=== PATIENT | female | born 1970 | race Caucasian/White ===

== ENCOUNTER → 2016-12-08 | Outpatient (CLI) | payer BC | LOC: OD 16:01 | PROVIDERS: ATTEND Family Medicine | DX: M25.50 Pain in unspecified joint (principal) | CPT/HCPCS: 36415; 84443; 85652; 86038; 86140; 86430 ==

== ENCOUNTER → 2017-03-10 | Outpatient (CLI) | payer BC, OTHER ==
--- NOTE | 2017-03-10 11:47 | RADIOLOGY REPORT (SQ) ---
EXAM DESCRIPTION: CHEST PA/LATERAL COMPLETED DATE/TIME: 03/10/2017 11:38 am REASON FOR STUDY: PRE OP COMPARISON: 04/11/2009 EXAM PARAMETERS: NUMBER OF VIEWS: two views TECHNIQUE: Digital Frontal and Lateral radiographic views of the chest acquired. RADIATION DOSE: NA LIMITATIONS: none FINDINGS: LUNGS AND PLEURA: No opacities, masses or pneumothorax. No pleural effusion. MEDIASTINUM AND HILAR STRUCTURES: No masses or contour abnormalities. HEART AND VASCULAR STRUCTURES: Heart normal size. No evidence for failure. BONES: No acute findings. HARDWARE: None in the chest. OTHER: No other significant finding. IMPRESSION: NO SIGNIFICANT RADIOGRAPHIC FINDING IN THE CHEST. TECHNICAL DOCUMENTATION: JOB ID: [id number] [employer]- All Rights Reserved
[2017-03-10 12:09] LABS: APPEARANCE,URINE CLEAR; BILIRUBIN,URINE NEGATIVE (NEGATIVE); GLUCOSE, URINE NEGATIVE (NEGATIVE); KETONES,URINE NEGATIVE (NEGATIVE); LEUKOCYTE ESTERASE,URINE NEGATIVE (NEGATIVE); NITRITE,URINE NEGATIVE (NEGATIVE); PROTEIN,URINE NEGATIVE (NEGATIVE); URINE SPECIFIC GRAVITY 1.003; UROBILINOGEN,URINE NEGATIVE mg/dL (<2.0)
[2017-03-10 12:13] LABS: ABSOLUTE EOSINOPHILS # (AUTO) 0.2 10^3/uL (0.0-0.6); ABSOLUTE MONOCYTES (AUTO) 0.7 10^3/uL (0.1-1.4); ABSOLUTE NEUT (AUTO) 6.6 10^3/uL (1.7-8.2); BASOPHILS % (AUTO) 0.5 % (0-2); EOSINOPHILS % (AUTO) 1.9 % (0-6); HEMATOCRIT 44.3 % (36.0-47.0); HGB HCT DIFFERENCE 0.7; LYMPHOCYTES % (AUTO) 28.5 % (13-45); MEAN CORPUSCULAR VOLUME 88 fl (80-97); MONOCYTES % (AUTO) 6.5 % (3-13); RED BLOOD COUNT 5.01 10^6/uL (3.72-5.28); RED CELL DISTRIBUTION WIDTH 13.5 % (11.5-14.0); SEGMENTED NEUTROPHILS % (AUTO) 62.6 % (42-78); WHITE BLOOD COUNT 10.5 10^3/uL (4.0-10.5)
[2017-03-10 12:35] LABS: ANION GAP 11 (5-19); BLOOD UREA NITROGEN 10 mg/dL (7-20); CALCIUM 10.3 mg/dL (8.4-10.2); CARBON DIOXIDE 26 mmol/L (22-30); CHLORIDE 102 mmol/L (98-107); GLUCOSE 167 mg/dL (75-110); POTASSIUM 4.6 mmol/L (3.6-5.0); SODIUM 139.4 mmol/L (137-145)
--- NOTE | 2017-03-10 22:46 | EKG REPORT ---
SEVERITY:- NORMAL ECG - SINUS RHYTHM : Confirmed by: Adrián Wills 10-Mar-2017 22:46:20
== END ==
LOC: OD 10:48
PROVIDERS: ATTEND Orthopaedic Surgery
DX: Z01.810 Encounter for preprocedural cardiovascular examination (principal); Z01.812 Encounter for preprocedural laboratory examination; Z01.818 Encounter for other preprocedural examination
CPT/HCPCS: 36415; 71020; 80048; 81001; 83036; 85025; 93005; 93010

== ENCOUNTER 2017-03-29 08:30 | Inpatient (IN) | payer BC, OTHER ==
[~2017-03-29 08:30] MED LIST: BUPIVACAINE INJ/PF LIPOSOME/PF 266 MG/20 ML SDV INJ PRN; CEFAZOLIN INJ 1 GM VIAL IV PRN; IBUPROFEN 800 MG in NORMAL SALINE 250 ML IV PRN; LACTATED RINGERS 1000 ML IV PRN; LANSOPRAZOLE 15 MG TAB.RAP.DR PO PRN; LIDOCAINE 0.5% INJ-PF (5 MG/ML) 50 ML SDV SUBCUT PRN; OXYCODONE HCL SR 10 MG TABLET PO PRN; VANCOMYCIN HCL 1,000 MG in DEXTROSE 5%-WATER 250 ML IV PRN
[2017-03-29] MEDS ORDERED: MIDAZOLAM 2 MG/2 ML INJ ONE (09:40)
[2017-03-29] MEDS ORDERED: FENTANYL CITRATE INJ/PF 100 MCG/2 ML AMPUL ONE (09:40)
[2017-03-29] MEDS ORDERED: TRANEXAMIC ACID INJ/PF 1,000 MG/10 ML SDV IV ONE ×3 (09:41→13:30)
[2017-03-29] MEDS ORDERED: PROPOFOL INJ 200 MG/20 ML VIAL IV ONE ×2 (09:41→11:11)
[2017-03-29] MEDS ORDERED: BUPIVACAINE INJ/PF LIPOSOME/PF 266 MG/20 ML SDV ONE (09:47)
[2017-03-29] MEDS ORDERED: THROMBIN (BOVINE) TOPICAL 20000 UNIT VIAL ONE (09:47)
[2017-03-29] MEDS ORDERED: THROMBIN (BOVINE) 5000 UNIT EPITAXIS KIT ONE (09:47)
[2017-03-29] MEDS ORDERED: PROMETHAZINE HCL INJ 25 MG/1 ML VIAL IV PRN (11:04)
[2017-03-29] MEDS ORDERED: FENTANYL CITRATE INJ/PF 100 MCG/2 ML AMPUL IV PRN ×3 (11:04)
[2017-03-29] MEDS ORDERED: ONDANSETRON HCL INJ/PF 4 MG/2 ML SDV IV PRN ×3 (11:04→12:30)
[2017-03-29] MEDS ORDERED: DIPHENHYDRAMINE HCL 50 MG/ML VIAL IV PRN ×2 (11:04→11:35)
[2017-03-29] MEDS ORDERED: MORPHINE SULFATE 10 MG/ML INJ IV PRN ×3 (11:04→11:35)
--- NOTE | 2017-03-29 11:25 | Operative Report ---
Operative Report DATE OF SURGERY: 03/29/17 PREOPERATIVE DIAGNOSIS: Right knee arthritis OPERATION: Right knee arthroplasty SURGEON: ANA REINOSO 1ST [employer] BAND WRAPPER: SHANI MAY ANESTHESIA: Spinal TISSUE REMOVED OR ALTERED: Bone to pathology ESTIMATED BLOOD LOSS: 100 PROCEDURE: Implants used: Femur: [place] triathlon number size 4 CR femur Tibia: 4 tibia Tibial liner: 9 mm CS insert Patella: 29 mm oval patella Procedure with the patient supine on the operating table the right the limb is prepped and draped in a sterile fashion. The limb was elevated for exsanguination and the tourniquet inflated to 280 torr. A standard midline median parapatellar approach the knee is taken. Access is gained to the femoral canal through the intercondylar notch. Intramedullary alignment instrumentation used to resect 10 mm of distal femur in 5 of valgus. Sizing guide indicated a size 4 femur. Appropriate cutting jig is then used to fashion anterior posterior and chamfer cuts. A trial reduction femurs performed and this is judged to be adequate. Attention was next turned to the tibia. Using an extra medullary alignment system 9 millimeters was resected off the lateral tibial plateau. This is sized to a size 4 tibia. A trial reduction was now performed with a for femur and a for tibia using a 9 millimeters spacer. It is full extension and central patellofemoral tracking. The articular surface the patella was next resected using an oscillating saw. All trial implants were removed. Polymethylmethacrylate is mixed and used to cement the above implants in place. On adequate curing the cement excess cement was removed the tourniquet was deflated hemostasis obtained the wound is then closed in layers using interrupted Vicryl followed by alexnadria. A sterile compressive dressing was applied and the patient returned to recovery room in satisfactory condition.
[2017-03-29] MEDS ORDERED: ESZOPICLONE PO PRN (11:34)
[2017-03-29] MEDS ORDERED: LORATADINE 10 MG TABLET PO PRN (11:34)
[2017-03-29] MEDS ORDERED: OXYCODONE HCL IR 5 MG TABLET PO PRN (11:35)
[2017-03-29] MEDS ORDERED: ONDANSETRON 4 MG TAB.RAPDIS PO PRN ×2 (11:35→12:30)
[2017-03-29] MEDS ORDERED: ACETAMINOPHEN 325 MG TABLET PO PRN (11:35)
[2017-03-29] MEDS ORDERED: MORPHINE SULFATE 10 MG/ML INJ IM PRN (11:35)
[2017-03-29] MEDS ORDERED: ZOLPIDEM TARTRATE 5 MG TABLET PO PRN ×3 (11:35→12:30)
[2017-03-29] MEDS ORDERED: MAG HYDROX/AL HYDROX/SIMETH SUSP 30 ML UDCUP PO PRN ×2 (11:35→12:30)
--- NOTE | 2017-03-29 13:30 | RADIOLOGY REPORT (SQ) ---
EXAM DESCRIPTION: KNEE RIGHT 2 VIEWS COMPLETED DATE/TIME: 03/29/2017 1:10 pm REASON FOR STUDY: POST-OP RIGHT KNEE IN PACU. M17.11 UNILATERAL PRIMARY OSTEOARTHRITIS, RIGHT KNEE COMPARISON: None. NUMBER OF VIEWS: Two view(s). TECHNIQUE: Digital radiographic images of the right knee post-procedure. LIMITATIONS: None. FINDINGS: BONES: No worrisome or unexpected findings post-procedure. DEVICE: Total knee arthroplasty. SOFT TISSUES: No worrisome findings. Expected postoperative soft tissue changes. IMPRESSION: SATISFACTORY POSTOPERATIVE RIGHT KNEE. TECHNICAL DOCUMENTATION: JOB ID: [id number] [employer]- All Rights Reserved
[2017-03-29] MEDS ORDERED: INFLUENZA ADLT QUAD (36MOS+) 2017-18 VAC 0.5 ML SYR IM PRN (15:17)
[2017-03-29] MEDS: MORPHINE SULFATE 10 MG/ML INJ IV PRN ×4 (16:27→23:33)
[2017-03-29] MEDS: SITAGLIPTIN PHOSPHATE 50 MG TABLET PO SCH (17:27)
[2017-03-29] MEDS: METFORMIN HCL 500 MG TABLET PO SCH (17:27)
[2017-03-29] MEDS: OXYCODONE HCL IR 5 MG TABLET PO PRN (17:27)
[2017-03-29] MEDS: IBUPROFEN 800 MG in NORMAL SALINE 250 ML IV SCH (17:28)
[2017-03-29] MEDS ORDERED: ACETAMINOPHEN 100 ML IV ONE (17:35)
[2017-03-29] MEDS: RIVAROXABAN 10 MG TABLET PO SCH (21:08)
[2017-03-29] MEDS: PREGABALIN 75 MG CAPSULE PO SCH (21:08)
[2017-03-29] MEDS ORDERED: OXYCODONE HCL SR 10 MG TABLET PO SCH (22:00)
[2017-03-29] MEDS ORDERED: VANCOMYCIN HCL 1,000 MG in DEXTROSE 5%-WATER 250 ML IV ONE (23:35)
[2017-03-30] MEDS: OXYCODONE HCL IR 5 MG TABLET PO PRN ×2 (00:06→23:43)
[2017-03-30] MEDS: MORPHINE SULFATE 10 MG/ML INJ IV PRN ×8 (00:36→16:31)
[2017-03-30] MEDS: IBUPROFEN 800 MG in NORMAL SALINE 250 ML IV SCH ×3 (02:05→17:14)
[2017-03-30] MEDS: LANSOPRAZOLE 30 MG TAB.RAP.DR PO SCH (05:32)
[2017-03-30 05:59] LABS: HEMATOCRIT 34.8 % (36.0-47.0); HEMOGLOBIN 12.4 g/dL (12.0-15.5); HGB HCT DIFFERENCE 2.4; MEAN CORPUSCULAR HEMOGLOBIN 30.5 pg (27.0-33.4); MEAN CORPUSCULAR HGB CONC 35.5 g/dL (32.0-36.0); MEAN CORPUSCULAR VOLUME 86 fl (80-97); RED BLOOD COUNT 4.05 10^6/uL (3.72-5.28); RED CELL DISTRIBUTION WIDTH 13.2 % (11.5-14.0); WHITE BLOOD COUNT 11.7 10^3/uL (4.0-10.5)
[2017-03-30 06:15] LABS: ANION GAP 9 (5-19); BLOOD UREA NITROGEN 6 mg/dL (7-20); CALCIUM 8.8 mg/dL (8.4-10.2); CARBON DIOXIDE 26 mmol/L (22-30); CHLORIDE 104 mmol/L (98-107); CREATININE RESULT 0.45 mg/dL (0.52-1.25); GLUCOSE 165 mg/dL (75-110); POTASSIUM 4.4 mmol/L (3.6-5.0); SODIUM 138.7 mmol/L (137-145)
--- NOTE | 2017-03-30 06:36 | PDOC PROGRESS REPORT ---
Subjective Progress Note for:: 03/30/17 Subjective:: Patient complained of pain all night unrelieved by IV narcotics Physical Exam Vital Signs: Temp Pulse Resp BP Pulse Ox 36.8 C 88 15 104/66 98 03/29/17 23:09 03/29/17 23:09 03/29/17 23:09 03/29/17 23:09 03/29/17 23:09 Intake & Output 03/28/17 03/29/17 03/30/17 06:59 06:59 06:59 Intake Total 4410 Output Total 3105 Balance 1305 General appearance: PRESENT: no acute distress Head exam: PRESENT: normocephalic Respiratory exam: PRESENT: unlabored Cardiovascular exam: PRESENT: RRR Pulses: PRESENT: +1 pedal pulses bilateral Vascular exam: PRESENT: normal capillary refill GI/Abdominal exam: PRESENT: soft Rectal exam: PRESENT: deferred Extremities exam: PRESENT: other - Right lower extremity dressing clean dry and intact Neurological exam: PRESENT: alert, awake, oriented to person, oriented to place , oriented to time, oriented to situation. ABSENT: motor sensory deficit Psychiatric exam: PRESENT: appropriate affect, normal mood. ABSENT: homicidal ideation, suicidal ideation Skin exam: PRESENT: dry, intact, warm. ABSENT: cyanosis, rash Results Laboratory Results: 03/30/17 05:42 03/30/17 05:42 03/30/17 03/30/17 05:42 05:42 WBC 11.7 H RBC 4.05 Hgb 12.4 Hct 34.8 L MCV 86 MCH 30.5 MCHC 35.5 RDW 13.2 Plt Count 261 Sodium 138.7 Potassium 4.4 Chloride 104 Carbon Dioxide 26 Anion Gap 9 BUN 6 L Creatinine 0.45 L Est GFR ( Amer) > 60 Est GFR (Non-Af Amer) > 60 Glucose 165 H Calcium 8.8 Impressions: Knee X-Ray 03/29/17 00:00 IMPRESSION: SATISFACTORY POSTOPERATIVE RIGHT KNEE. Status: Imported from PACS Assessment & Plan - Diagnosis (1) Arthritis of right knee Is this a current diagnosis for this admission?: Yes Plan: 46-year-old white female postop day 1 status post right knee arthroplasty. Appropriate analgesia remains problematic patient's OxyContin has been increased. She will continue on with physical therapy. - Time Time Spent with patient: 15-24 minutes Anticipated discharge: Home with Homehealth Within: within 24 hours
[2017-03-30] MEDS: SITAGLIPTIN PHOSPHATE 50 MG TABLET PO SCH ×2 (09:12→17:14)
[2017-03-30] MEDS: METFORMIN HCL 500 MG TABLET PO SCH ×2 (09:12→17:13)
[2017-03-30] MEDS: VALSARTAN 160 MG TABLET PO SCH (09:13)
[2017-03-30] MEDS: AMLODIPINE BESYLATE 5 MG TABLET PO SCH (09:13)
[2017-03-30] MEDS: ASCORBIC ACID 500 MG TABLET PO SCH (09:14)
[2017-03-30] MEDS: OXYCODONE HCL SR 40 MG TABLET PO SCH ×2 (09:14→21:43)
[2017-03-30] MEDS: MULTIVITAMIN TABLET PO SCH (09:15)
[2017-03-30] MEDS: PREGABALIN 75 MG CAPSULE PO SCH ×2 (09:15→21:43)
[2017-03-30] MEDS ORDERED: VALSARTAN PO SCH (10:00)
[2017-03-30] MEDS ORDERED: ASCORBATE CALCIUM PO SCH (10:00)
[2017-03-30] MEDS ORDERED: AMLODIPINE BESYLATE PO SCH (10:00)
[2017-03-30] MEDS ORDERED: [UNRECOGNIZED DRUG - OTHER] PO SCH (10:00)
[2017-03-30] MEDS ORDERED: PHENYLEPHRINE HCL INJ/PF 10 MG/1 ML SDV ONE (11:08)
[2017-03-30] MEDS: RIVAROXABAN 10 MG TABLET PO SCH (21:43)
[2017-03-31] MEDS: IBUPROFEN 800 MG in NORMAL SALINE 250 ML IV SCH ×2 (01:03→09:27)
[2017-03-31] MEDS: LANSOPRAZOLE 30 MG TAB.RAP.DR PO SCH (05:48)
[2017-03-31] MEDS: OXYCODONE HCL IR 5 MG TABLET PO PRN (05:48)
[2017-03-31 05:49] LABS: HEMATOCRIT 33.7 % (36.0-47.0); HEMOGLOBIN 11.9 g/dL (12.0-15.5); MEAN CORPUSCULAR HEMOGLOBIN 30.5 pg (27.0-33.4); MEAN CORPUSCULAR HGB CONC 35.3 g/dL (32.0-36.0); MEAN CORPUSCULAR VOLUME 87 fl (80-97); RED BLOOD COUNT 3.89 10^6/uL (3.72-5.28); RED CELL DISTRIBUTION WIDTH 13.4 % (11.5-14.0); WHITE BLOOD COUNT 13.3 10^3/uL (4.0-10.5)
--- NOTE | 2017-03-31 07:31 | PDOC DISCHARGE SUMMARY ---
General - Admit/Disc Date/PCP Admission Date/Primary Care Provider: 03/29/17 08:30 DANIEL LAU MD Discharge Date: 03/31/17 - Discharge Diagnosis (1) Arthritis of right knee Is this a current diagnosis for this admission?: Yes - Additional Information Resuscitation Status: Full Code Discharge Diet: As Tolerated, Regular Discharge Activity: Activity As Tolerated, No Driving, No tub bath, Walk Frequently Home Medications: Amlodipine Besylate/Valsartan [Amlodipine-Valsartan 5-160 mg] 1 tab PO DAILY Eszopiclone [Lunesta] 1 mg PO HSP PRN 03/15/17 Ibuprofen 800 mg PO Q8HP PRN 03/15/17 Loratadine [Claritin] 10 mg PO DAILYP PRN 03/15/17 Multivitamin [Multiple Vitamins] 1 tab PO DAILY 03/15/17 Tramadol HCl 50 mg PO Q12HP PRN 03/15/17 Sitagliptin Phos/Metformin HCl [Janumet Xr 50-500 mg Tablet] 1 tab PO BID History of Present Illness History of Present Illness: QUIANA RAHMAN is a 46 year old female who was admitted to the OR for an elective total right knee arthroplasty. Hospital Course Hospital Course: 46-year-old female who was admitted to the OR who underwent a elective total right knee arthroplasty. She was turned to the surgical floor in acceptable condition and seen by physical therapy for weightbearing as tolerated intended to by nursing staff for pain control. She made progress with physical therapy ambulating up to 180 feet independently and she will be discharged to her home today on postop day 2 with home health nursing services, home physical therapy and a wheeled walker. Physical Exam Vital Signs: Temp Pulse Resp BP Pulse Ox 36.7 C 103 H 14 105/50 L 99 03/30/17 23:48 03/30/17 23:48 03/30/17 23:48 03/30/17 23:48 03/30/17 23:48 Intake & Output 03/30/17 03/31/17 04/01/17 06:59 06:59 06:59 Intake Total 4810 2930 Output Total 3785 1200 Balance 1025 1730 General appearance: PRESENT: no acute distress, well-developed, well-nourished Head exam: PRESENT: atraumatic, normocephalic Pulses: PRESENT: normal dorsalis pedis pul, +2 pedal pulses bilateral Vascular exam: PRESENT: normal capillary refill Additional comments: Right lower extremity is in postoperative compression dressing this morning. This dressing was removed and OpSite wound dressing is clean dry and intact. She exhibits appropriate strength and range of motion for this stage in recovery process she has brisk capillary refill and her sensory and motor functions are intact. Her leg lengths are equal and distal neurovascular exam is intact. Musculoskeletal exam: PRESENT: ambulatory Additional comments: Patient has made good progress with physical therapy here in the hospital ambulating up to 180 feet independently. She will continue to make progress with home physical therapy to improve strength and range of motion of the right lower extremity. Neurological exam: PRESENT: alert, awake, oriented to person, oriented to place , oriented to time, oriented to situation, CN II-XII grossly intact. ABSENT: motor sensory deficit Psychiatric exam: PRESENT: appropriate affect, normal mood. ABSENT: homicidal ideation, suicidal ideation Skin exam: PRESENT: dry, intact, warm. ABSENT: cyanosis, rash Results Laboratory Results: 03/31/17 05:23 03/30/17 05:42 03/31/17 05:23 WBC 13.3 H RBC 3.89 Hgb 11.9 L Hct 33.7 L MCV 87 MCH 30.5 MCHC 35.3 RDW 13.4 Plt Count 264 Impressions: Knee X-Ray 03/29/17 00:00 IMPRESSION: SATISFACTORY POSTOPERATIVE RIGHT KNEE. Plan Discharge Plan: 46-year-old white female 2 days status post total right knee arthroplasty who will be discharged home today with home PT, home health nursing, wheeled walker. The visiting nurse service will change the postop site dressing day 7 and replaced it with a new one. Patient was advised that with her post operative pain regimen she does not need to take the oxycodone and she can simply take the written prescription for tramadol as well as her Xarelto. She was also advised to take oral Motrin as this provided optimal pain relief for the patient while in the hospital. She will follow up with [facility] for surgery with Dr. Mora 2 weeks postoperatively for staple removal and reevaluation.
[2017-03-31] MEDS ORDERED: TRAMADOL HCL 50 MG TABLET PO PRN (08:15)
[2017-03-31] MEDS: ASCORBIC ACID 500 MG TABLET PO SCH (09:25)
[2017-03-31] MEDS: METFORMIN HCL 500 MG TABLET PO SCH (09:25)
[2017-03-31] MEDS: PREGABALIN 75 MG CAPSULE PO SCH (09:26)
[2017-03-31] MEDS: SITAGLIPTIN PHOSPHATE 50 MG TABLET PO SCH (09:26)
[2017-03-31] MEDS: VALSARTAN 160 MG TABLET PO SCH (09:26)
[2017-03-31] MEDS: MULTIVITAMIN TABLET PO SCH (09:26)
[2017-03-31] MEDS: AMLODIPINE BESYLATE 5 MG TABLET PO SCH (09:27)
[2017-03-31 14:03] VITALS: BP 104/66
== END 2017-03-31 14:44 | disposition home health service (06) | DRG 470 ==
LOC: INOR 08:30 → 4S 13:14
PROVIDERS: ADMIT Orthopaedic Surgery; ATTEND Orthopaedic Surgery
PROC: 0SRC0J9 Replacement of Right Knee Joint with Synthetic Substitute, Cemented, Open Approach (ICD-10-PCS; principal; 2017-03-29 10:30)
PROC: 3E0234Z Introduction of Serum, Toxoid and Vaccine into Muscle, Percutaneous Approach (ICD-10-PCS; 2017-03-31)
DX: M17.11 Unilateral primary osteoarthritis, right knee (principal); K21.9 Gastro-esophageal reflux disease without esophagitis; E11.9 Type 2 diabetes mellitus without complications; I10 Essential (primary) hypertension; Z86.14 Personal history of Methicillin resistant Staphylococcus aureus infection; Z88.6 Allergy status to analgesic agent; Z23 Encounter for immunization
CPT/HCPCS: 01402; 36415; 80048; 81025; 82962; 85027; 88305; 88311; 90686; 94799; C9290; J0131; J0690; J1741; J2250; J2270; J2370; J2704; J3010; J3370; J3490; J7050; J7060; S0119

== ENCOUNTER → 2017-06-29 | Outpatient (CLI) | payer BC, OTHER ==
--- NOTE | 2017-06-29 11:27 | RADIOLOGY REPORT (SQ) ---
EXAM DESCRIPTION: U/S ABDOMEN LIMITED W/O DOP COMPLETED DATE/TIME: 06/29/2017 9:05 am REASON FOR STUDY: N/V (R11.2), ABD TENDERNESS RUQ (R10.811 R11.2 NAUSEA WITH VOMITING, UNSPECIFIED R10.811 RIGHT UPPER QUADRANT ABDOMINAL TENDERNESS COMPARISON: None. TECHNIQUE: Dynamic and static grayscale images acquired of the abdomen and recorded on PACS. Additio nal selected color Doppler and spectral images recorded. LIMITATIONS: None. FINDINGS: PANCREAS: No masses. Visualized pancreatic duct normal caliber. LIVER: No masses. Echotexture normal. LIVER VASCULATURE: Normal directional flow of the main portal vein and hepatic veins. GALLBLADDER: Sludge. No gallstones. No thickening of the wall or pericholecystic edema. ULTRASOUND-DETECTED WINN'S SIGN: Negative. INTRAHEPATIC DUCTS AND COMMON DUCT: CBD and intrahepatic ducts normal caliber. No filling defects. INFERIOR VENA CAVA: Normal flow. AORTA: No aneurysm. RIGHT KIDNEY: Normal size. Normal echogenicity. No solid or suspicious masses. No hydronephrosis. No calcifications. PERITONEAL AND RIGHT PLEURAL SPACE: No ascites or effusions. OTHER: No other significant findings. IMPRESSION: Gallbladder sludge. Study otherwise normal. TECHNICAL DOCUMENTATION: JOB ID: [id number] [employer]- All Rights Reserved
== END ==
LOC: RAD 08:11
PROVIDERS: ATTEND Internal Medicine Gastroenterology
DX: R11.2 Nausea with vomiting, unspecified (principal); R10.811 Right upper quadrant abdominal tenderness; K82.8 Other specified diseases of gallbladder
CPT/HCPCS: 76705

== ENCOUNTER → 2017-07-09 | Outpatient (CLI) | payer BC, OTHER ==
[2017-07-09 14:59] LABS: ABSOLUTE BASOPHILS # (AUTO) 0.1 10^3/uL (0.0-0.2); ABSOLUTE EOSINOPHILS # (AUTO) 0.3 10^3/uL (0.0-0.6); ABSOLUTE LYMPHOCYTES (AUTO) 3.3 10^3/uL (0.5-4.7); ABSOLUTE MONOCYTES (AUTO) 0.7 10^3/uL (0.1-1.4); ABSOLUTE NEUT (AUTO) 4.2 10^3/uL (1.7-8.2); BASOPHILS % (AUTO) 0.8 % (0-2); EOSINOPHILS % (AUTO) 3.3 % (0-6); HEMATOCRIT 44.2 % (36.0-47.0); HEMOGLOBIN 15.2 g/dL (12.0-15.5); LYMPHOCYTES % (AUTO) 38.6 % (13-45); MEAN CORPUSCULAR HEMOGLOBIN 28.9 pg (27.0-33.4); MEAN CORPUSCULAR HGB CONC 34.3 g/dL (32.0-36.0); MEAN CORPUSCULAR VOLUME 84 fl (80-97); MONOCYTES % (AUTO) 7.8 % (3-13); PLATELET COUNT 349 10^3/uL (150-450); RED BLOOD COUNT 5.25 10^6/uL (3.72-5.28); RED CELL DISTRIBUTION WIDTH 13.7 % (11.5-14.0); SEGMENTED NEUTROPHILS % (AUTO) 49.5 % (42-78); TOTAL CELLS COUNTED % (AUTO) 100 %; WHITE BLOOD COUNT 8.5 10^3/uL (4.0-10.5)
[2017-07-09 15:03] LABS: APPEARANCE,URINE CLEAR; BILIRUBIN,URINE NEGATIVE (NEGATIVE); COLOR,URINE YELLOW; GLUCOSE, URINE NEGATIVE (NEGATIVE); KETONES,URINE NEGATIVE (NEGATIVE); LEUKOCYTE ESTERASE,URINE NEGATIVE (NEGATIVE); NITRITE,URINE NEGATIVE (NEGATIVE); PROTEIN,URINE NEGATIVE (NEGATIVE); URINE SPECIFIC GRAVITY 1.006; UROBILINOGEN,URINE NEGATIVE mg/dL (<2.0)
[2017-07-09 15:28] LABS: ANION GAP 16 (5-19); BLOOD UREA NITROGEN 12 mg/dL (7-20); CALCIUM 10.8 mg/dL (8.4-10.2); CARBON DIOXIDE 26 mmol/L (22-30); CHLORIDE 102 mmol/L (98-107); GLUCOSE 115 mg/dL (75-110); POTASSIUM 4.5 mmol/L (3.6-5.0)
--- NOTE | 2017-07-09 15:32 | RADIOLOGY REPORT (SQ) ---
EXAM DESCRIPTION: CHEST PA/LATERAL COMPLETED DATE/TIME: 07/09/2017 2:23 pm REASON FOR STUDY: PRE OP COMPARISON: 03/10/2017 EXAM PARAMETERS: NUMBER OF VIEWS: two views TECHNIQUE: Digital Frontal and Lateral radiographic views of the chest acquired. RADIATION DOSE: NA LIMITATIONS: none FINDINGS: LUNGS AND PLEURA: No opacities, masses or pneumothorax. No pleural effusion. MEDIASTINUM AND HILAR STRUCTURES: No masses or contour abnormalities. HEART AND VASCULAR STRUCTURES: Heart normal size. No evidence for failure. BONES: No acute findings. HARDWARE: None in the chest. OTHER: No other significant finding. IMPRESSION: NO SIGNIFICANT RADIOGRAPHIC FINDING IN THE CHEST. TECHNICAL DOCUMENTATION: JOB ID: [id number] [employer]- All Rights Reserved
--- NOTE | 2017-07-09 18:15 | EKG REPORT ---
SEVERITY:- NORMAL ECG - SINUS RHYTHM : Confirmed by: Braulio Orourke MD 09-Jul-2017 18:14:44
== END ==
LOC: OD 13:24
PROVIDERS: ATTEND Orthopaedic Surgery
DX: Z01.810 Encounter for preprocedural cardiovascular examination (principal); Z01.812 Encounter for preprocedural laboratory examination; Z01.818 Encounter for other preprocedural examination; E11.9 Type 2 diabetes mellitus without complications
CPT/HCPCS: 36415; 71046; 80048; 81001; 83036; 85025; 93005; 93010

== ENCOUNTER 2017-08-02 07:41 | Inpatient (IN) | payer BC, OTHER ==
[~2017-08-02 07:41] MED LIST changes: +BUPIVACAINE INJ/PF LIPOSOME/PF 266 MG/20 ML SDV IJ PRN; -BUPIVACAINE INJ/PF LIPOSOME/PF 266 MG/20 ML SDV INJ PRN; +BUPIVACAINE INJ/PF LIPOSOME/PF 266 MG/20 ML SDV ONE; -IBUPROFEN 800 MG in NORMAL SALINE 250 ML IV PRN; +IBUPROFEN 800 MG/NS 250 ML IV PRN; +THROMBIN (BOVINE) 5000 UNIT EPITAXIS KIT ONE; +THROMBIN (BOVINE) TOPICAL 20000 UNIT VIAL ONE
[2017-08-02] MEDS ORDERED: MIDAZOLAM 2 MG/2 ML INJ ONE ×2 (08:40→08:58)
[2017-08-02] MEDS ORDERED: FENTANYL CITRATE INJ/PF 100 MCG/2 ML AMPUL ONE (08:57)
[2017-08-02] MEDS ORDERED: LIDOCAINE 2% INJ-PF (20 MG/ML) 10 ML AMPUL ONE (08:57)
[2017-08-02] MEDS ORDERED: TRANEXAMIC ACID INJ/PF 1,000 MG/10 ML SDV IV ONE ×2 (08:58→13:00)
[2017-08-02] MEDS ORDERED: HYDROMORPHONE HCL INJ/PF 2 MG/ML AMPULE ONE (08:58)
[2017-08-02] MEDS ORDERED: PROPOFOL INJ 200 MG/20 ML VIAL IV ONE (08:58)
[2017-08-02] MEDS ORDERED: KETAMINE HCL INJ 500 MG/10 ML VIAL ONE (10:22)
[2017-08-02] MEDS ORDERED: MEPERIDINE HCL/PF INJ 25 MG/1 ML DISP.SYRIN IV PRN ×2 (10:31→10:32)
[2017-08-02] MEDS ORDERED: ONDANSETRON HCL INJ/PF 4 MG/2 ML SDV IV PRN (10:31)
[2017-08-02] MEDS ORDERED: PROMETHAZINE HCL INJ 25 MG/1 ML VIAL IV PRN ×4 (10:31→10:32)
[2017-08-02] MEDS ORDERED: DIPHENHYDRAMINE HCL 50 MG/ML VIAL IV PRN ×3 (10:31→11:09)
[2017-08-02] MEDS ORDERED: FENTANYL CITRATE INJ/PF 100 MCG/2 ML AMPUL IV PRN ×6 (10:31→10:32)
--- NOTE | 2017-08-02 10:54 | Operative Report ---
Operative Report DATE OF SURGERY: 08/02/17 PREOPERATIVE DIAGNOSIS: Left knee arthritis OPERATION: Left knee arthroplasty SURGEON: ANA REINOSO 1ST [employer] OFFICER: SHANI MAY ANESTHESIA: Spinal TISSUE REMOVED OR ALTERED: Bone to pathology ESTIMATED BLOOD LOSS: 100 PROCEDURE: Implants used: Femur: [place] triathlon size 4 CR femur Tibia: 4 tibia Tibial liner: 9 mm CS spacer Patella: 29 mm oval patella Procedure with the patient supine on the operating table the left the limb is prepped and draped in a sterile fashion. The limb was elevated for exsanguination and the tourniquet inflated to 280 torr. A standard midline median parapatellar approach the knee is taken. Access is gained to the femoral canal through the intercondylar notch. Intramedullary alignment instrumentation used to resect 10 mm of distal femur in 5 of valgus. Sizing guide indicated a size 4 femur. Appropriate cutting jig is then used to fashion anterior posterior and chamfer cuts. A trial reduction femurs performed and this is judged to be adequate. Attention was next turned to the tibia. Using an extra medullary alignment system 9 millimeters was resected off the lateral tibial plateau. This is sized to a size 4 tibia. A trial reduction was now performed with a for femur and a for tibia using a 9 millimeters spacer. It is full extension and central patellofemoral tracking. The articular surface the patella was next resected using an oscillating saw. All trial implants were removed. Polymethylmethacrylate is mixed and used to cement the above implants in place. On adequate curing the cement excess cement was removed the tourniquet was deflated hemostasis obtained the wound is then closed in layers using interrupted Vicryl followed by alexandria. A sterile compressive dressing was applied and the patient returned to recovery room in satisfactory condition.
[2017-08-02] MEDS ORDERED: CYCLOBENZAPRINE HCL 10 MG TABLET PO PRN (11:08)
[2017-08-02] MEDS ORDERED: OXYCODONE HCL IR 5 MG TABLET PO PRN (11:09)
[2017-08-02] MEDS ORDERED: MAG HYDROX/AL HYDROX/SIMETH SUSP 30 ML UDCUP PO PRN (11:09)
[2017-08-02] MEDS ORDERED: ZOLPIDEM TARTRATE 5 MG TABLET PO PRN (11:09)
[2017-08-02] MEDS ORDERED: ONDANSETRON 4 MG TAB.RAPDIS PO PRN (11:09)
[2017-08-02] MEDS ORDERED: ACETAMINOPHEN 325 MG TABLET PO PRN (11:09)
--- NOTE | 2017-08-02 11:59 | RADIOLOGY REPORT (SQ) ---
EXAM DESCRIPTION: KNEE LEFT 2 VIEWS COMPLETED DATE/TIME: 08/02/2017 11:50 am REASON FOR STUDY: Post OP -Long Cassette in PACU M17.12 UNILATERAL PRIMARY OSTEOARTHRITIS, LEFT KNE E COMPARISON: None. NUMBER OF VIEWS: Left knee two views TECHNIQUE: Digital radiographic images of the left knee post-procedure. LIMITATIONS: None. FINDINGS: BONES: No worrisome or unexpected findings post-procedure. DEVICE: Left total knee replacement with patellar resurfacing SOFT TISSUES: No worrisome findings. Expected postoperative soft tissue changes. IMPRESSION: SATISFACTORY POSTOPERATIVE LEFT KNEE. TECHNICAL DOCUMENTATION: JOB ID: [id number] [employer]- All Rights Reserved
--- NOTE | 2017-08-02 12:31 | Physician Advisory Note ---
Physician Advisor ProgressNote .: Pursuant to the plan for Blake Sanchez, I have reviewed the medical record for this patient. Physician Advisor Statement: What still needs to be documented by attending to support surgical necessity: 1. What nonsurgical or conservative options have been tried and are clearly documented in the pre-op medical record (Choose ALL that apply): A. NSAIDS or Analgesics - what, how much, for how long? (or: not tolerated due to ) B. Flexibility and Muscle Strengthening exercises C. PT (or: not able to tolerate due to ) D. Assistive device use (cane, walker, brace) - what, how long? E. Therapeutic injections - what, how long? F. Weight loss attempts (as appropriate)? or G. 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 The above tx.s have not proven successful & this patient continues with ( Choose ALL that apply): A. Pain in joint at rest (pain rating scale: ___/10) B. Pain in joint with activity (pain rating scale: ___/10) C. Pain in joint with weight bearing (pain rating scale: ___/10) 3. Pain or functional disability from injury due to trauma or arthritis of the joint interferes with these ADLs (Choose ALL that apply): A. Standing B. Walking C. Bathing D. Cooking E. Squatting F. Climbing stairs G. Difficulty getting up when seated a long time 4. Radiologic findings pre-op of the knee that is for surgery now (Choose ALL that apply): A. Subchondral cysts B. Subchondral sclerosis C. Periarticular osteophytes D. Joint space narrowing/endstage joint disease E. Joint subluxation F. AVN/osteonecrosis Status: Current documented information does not support Inpatient status at this time according to [facility] criteria. Unless [facility] status criteria are different, she should be Outpatient status, changing to Inpatient if she develops complications or other issues that qualify for Inpatient status. Thanks, CK
[2017-08-02] MEDS ORDERED: DEXTROSE 40% GEL 15 GM TUBE X 2 PO PRN (13:56)
[2017-08-02] MEDS ORDERED: DEXTROSE 50%-WATER SYRINGE 25 GM/50 ML DOSE IV PRN (13:56)
[2017-08-02] MEDS ORDERED: DEXTROSE 40% GEL 15 GM TUBE PO PRN (13:56)
[2017-08-02] MEDS ORDERED: GLUCAGON,HUMAN RECOMB 1 MG INJ IM PRN (13:56)
[2017-08-02] MEDS ORDERED: DEXTROSE 50%-WATER SYRINGE 12.5 GM/25 ML DOSE IV PRN (13:56)
[2017-08-02] MEDS ORDERED: ONDANSETRON HCL INJ/PF 4 MG/2 ML SDV ONE (14:17)
[2017-08-02] MEDS: ONDANSETRON HCL INJ/PF 4 MG/2 ML SDV IV PRN ×2 (14:42→23:42)
[2017-08-02] MEDS: IBUPROFEN 800 MG in NORMAL SALINE 250 ML IV SCH ×2 (14:47→23:41)
[2017-08-02] MEDS: HYDROMORPHONE HCL INJ/PF 2 MG/ML AMPULE IV PRN ×2 (16:24→20:45)
[2017-08-02] MEDS ORDERED: ACETAMINOPHEN 100 ML IV ONE (17:00)
[2017-08-02] MEDS: INSULIN LISPRO 100 UNIT/ML 3 ML VIAL SUBCUT PRN (17:28)
[2017-08-02] MEDS: PREGABALIN 75 MG CAPSULE PO SCH (18:02)
[2017-08-02] MEDS ORDERED: VANCOMYCIN HCL 1,000 MG in DEXTROSE 5%-WATER 250 ML IV ONE (23:00)
[2017-08-02] MEDS: OXYCODONE HCL SR 10 MG TABLET PO SCH (23:41)
[2017-08-02] MEDS: SULFAMETHOXAZOLE/TRIMETHOPRIM 800-160 MG TABLET PO SCH (23:43)
[2017-08-03] MEDS: HYDROMORPHONE HCL INJ/PF 2 MG/ML AMPULE IV PRN ×3 (00:09→06:12)
[2017-08-03 05:36] LABS: HEMATOCRIT 36.1 % (36.0-47.0); HEMOGLOBIN 12.3 g/dL (12.0-15.5); MEAN CORPUSCULAR HEMOGLOBIN 28.8 pg (27.0-33.4); MEAN CORPUSCULAR HGB CONC 34.1 g/dL (32.0-36.0); MEAN CORPUSCULAR VOLUME 84 fl (80-97); PLATELET COUNT 278 10^3/uL (150-450); RED BLOOD COUNT 4.28 10^6/uL (3.72-5.28); RED CELL DISTRIBUTION WIDTH 13.3 % (11.5-14.0); WHITE BLOOD COUNT 14.4 10^3/uL (4.0-10.5)
[2017-08-03] MEDS ORDERED: LANSOPRAZOLE 30 MG TAB.RAP.DR PO SCH (06:00)
[2017-08-03] MEDS: IBUPROFEN 800 MG in NORMAL SALINE 250 ML IV SCH (06:12)
[2017-08-03] MEDS: ONDANSETRON HCL INJ/PF 4 MG/2 ML SDV IV PRN (06:13)
[2017-08-03 06:14] LABS: ANION GAP 12 (5-19); BLOOD UREA NITROGEN 10 mg/dL (7-20); CALCIUM 9.2 mg/dL (8.4-10.2); CARBON DIOXIDE 27 mmol/L (22-30); CHLORIDE 99 mmol/L (98-107); GLUCOSE 191 mg/dL (75-110); POTASSIUM 4.3 mmol/L (3.6-5.0); SODIUM 138.2 mmol/L (137-145)
--- NOTE | 2017-08-03 06:48 | PDOC DISCHARGE SUMMARY ---
General - Admit/Disc Date/PCP Admission Date/Primary Care Provider: 08/02/17 07:41 DANIEL LAU MD Discharge Date: 08/03/17 - Discharge Diagnosis (1) Arthritis of left knee Is this a current diagnosis for this admission?: Yes - Additional Information Resuscitation Status: Full Code Discharge Diet: As Tolerated, Regular Discharge Activity: Activity As Tolerated, No Driving, No tub bath, Walk Frequently Home Medications: Amlodipine Besylate/Valsartan [Exforge 5-160 mg Tablet] 1 tab PO DAILY 07/30/17 Cyclobenzaprine HCl [Flexeril 10 mg Tablet] 10 mg PO Q6HP PRN 07/30/17 Eszopiclone [Lunesta] 3 mg PO QHS 07/30/17 Fluticasone Propionate [Flonase Nasal Karthaus 50 Mcg/Karthaus 16 gm] 2 spray NASL DAILY 07/30/17 Ibuprofen [Motrin 800 mg Tablet] 800 mg PO TIDP PRN 07/30/17 Loratadine [Claritin 10 mg Tablet] 10 mg PO DAILY 07/30/17 Meloxicam [Mobic] 7.5 mg PO DAILY 07/30/17 Multivitamin [Multiple Vitamins] 1 tab PO DAILY 07/30/17 Ondansetron [Zofran Odt 4 mg Tablet] 4 mg PO TIDP PRN 07/30/17 Sitagliptin Phos/Metformin HCl [Janumet Xr 50-1,000 mg Tablet] 2 tab PO DAILY Sulfamethoxazole/Trimethoprim [Septra-Ds 800-160 mg Tablet] 1 tab PO BID Tramadol HCl [Ultram 50 mg Tablet] 50 mg PO Q6HP PRN 07/30/17 History of Present Illness History of Present Illness: QUIANA RAHMAN is a 47 year old female with progressive pain and decreased functional mobility due to left knee arthritis. She was admitted for elective total left knee arthroplasty. Hospital Course Hospital Course: 47-year-old white female with left knee arthritis admitted to the hospital to the OR for elective total left knee arthroplasty. Patient undergoes uncomplicated procedure and is taken to PACU in satisfactory condition. She was then returned to the surgical floor where she is seen by nursing staff and Dr. Mora for pain control. Physical therapy was ordered to work towards weightbearing and ambulation on left lower extremity. She was not seen by physical therapy. This is somewhat concerning as a postoperative patient from a total joint arthroplasty. Her blood sugars were controlled between 155 and 163. She will be discharged to her home today with home health nursing, home physical therapy, wheeled walker and bedside commode. Physical Exam Vital Signs: Temp Pulse Resp BP Pulse Ox 36.4 C 65 15 129/65 H 100 08/02/17 23:00 08/02/17 23:00 08/02/17 23:00 08/02/17 23:00 08/02/17 23:00 Intake & Output 08/01/17 08/02/17 08/03/17 06:59 06:59 06:59 Intake Total 3250 Output Total 2050 Balance 1200 Weight 76.2 kg General appearance: PRESENT: no acute distress, well-developed, well-nourished Head exam: PRESENT: atraumatic, normocephalic Respiratory exam: PRESENT: unlabored Pulses: PRESENT: normal dorsalis pedis pul, +2 pedal pulses bilateral Vascular exam: PRESENT: normal capillary refill Additional comments: Patient lying recumbent in hospital bed with bilateral lower extremities in full extension. Her OpSite compression dressing is clean dry and intact. This is removed and her OpSite dressing underneath is clean dry and intact. This is left in place. She has +2 pedal pulses and minimal pedal edema. Her sensory motor functions are intact and her distal neurovascular exam is intact. Musculoskeletal exam: PRESENT: ambulatory Additional comments: It was ordered for physical therapy to see patient on postop day 0 from total left knee arthroplasty to work towards weightbearing and ambulation. She was not seen by physical therapy on postop day 0. This is concerning as she was postop from a total joint arthroplasty. Per patient and patient's she was ambulatory from bed to chair at the bedside and to bedside commode as well as the restroom. She will continue to work with home physical therapy to work towards further independent ambulation and increase strength and range of motion of left lower extremity. Neurological exam: PRESENT: alert, awake, oriented to person, oriented to place , oriented to time, oriented to situation, CN II-XII grossly intact. ABSENT: motor sensory deficit Psychiatric exam: PRESENT: appropriate affect, normal mood. ABSENT: homicidal ideation, suicidal ideation Skin exam: PRESENT: dry, intact, warm. ABSENT: cyanosis, rash Results Laboratory Results: 08/03/17 05:02 08/03/17 05:02 08/03/17 08/03/17 05:02 05:02 WBC 14.4 H RBC 4.28 Hgb 12.3 Hct 36.1 MCV 84 MCH 28.8 MCHC 34.1 RDW 13.3 Plt Count 278 Sodium 138.2 Potassium 4.3 Chloride 99 Carbon Dioxide 27 Anion Gap 12 BUN 10 Creatinine 0.47 L Est GFR ( Amer) > 60 Est GFR (Non-Af Amer) > 60 Glucose 191 H Calcium 9.2 Impressions: Knee X-Ray 08/02/17 11:11 IMPRESSION: SATISFACTORY POSTOPERATIVE LEFT KNEE. Plan Discharge Plan: 47-year-old white female one day status post total left knee arthroplasty. As noted physical therapy was ordered to see patient for weightbearing and ambulation postop day 0 from total left knee arthroplasty. She was not seen by physical therapy and was unable to make progress. This is concerning as she is status post total joint arthroplasty. Per patient and patient's she was ambulatory and able to transfer from bed to chair at the bedside as well as ambulate to the bathroom. She will be discharged to her home today with home health nursing, home physical therapy, wheeled walker and bedside commode. She will continue to work with home physical therapy to improve strength range of motion of left lower extremity and work towards independent ambulation. [facility] services will change OpSite dressing when they see fit i.e. when it is saturated with damaris blood. She will follow-up with [facility] for surgery Dr. Mora and Hank REID 2 weeks postoperatively for reevaluation and staple removal. Time Spent: Less than 30 Minutes
[2017-08-03 07:44] VITALS: BP 115/65
[2017-08-03] MEDS: INSULIN LISPRO 100 UNIT/ML 3 ML VIAL SUBCUT PRN (08:48)
[2017-08-03] MEDS: OXYCODONE HCL SR 10 MG TABLET PO SCH (09:54)
[2017-08-03] MEDS: PREGABALIN 75 MG CAPSULE PO SCH (09:55)
[2017-08-03] MEDS: SULFAMETHOXAZOLE/TRIMETHOPRIM 800-160 MG TABLET PO SCH (09:56)
[2017-08-03] MEDS ORDERED: MULTIVITAMIN TABLET PO SCH (10:00)
[2017-08-03] MEDS ORDERED: LORATADINE 10 MG TABLET PO SCH (10:00)
[2017-08-03] MEDS ORDERED: ASPIRIN 81 MG TABLET, CHEWABLE PO SCH (10:00)
[2017-08-03] MEDS ORDERED: AMLODIPINE BESYLATE PO SCH (10:00)
[2017-08-03] MEDS ORDERED: METFORMIN HCL PO SCH (10:00)
[2017-08-03] MEDS ORDERED: VALSARTAN PO SCH (10:00)
[2017-08-03] MEDS ORDERED: SITAGLIPTIN PHOS PO SCH (10:00)
[2017-08-03] MEDS ORDERED: [UNRECOGNIZED DRUG - OTHER] PO SCH (10:00)
[2017-08-03] MEDS ORDERED: VALSARTAN 160 MG TABLET PO SCH (10:00)
[2017-08-03] MEDS ORDERED: AMLODIPINE BESYLATE 5 MG TABLET PO SCH (10:00)
[2017-08-03] MEDS ORDERED: FLUTICASONE NASAL SPRAY 50 MCG/SPRY 120 SPRAY/16 GM NASL SCH (10:00)
== END 2017-08-03 11:13 | disposition home health service (06) | DRG 470 ==
LOC: INOR 07:41 → EDSTATUS 10:00 → 4S 12:21
PROVIDERS: ADMIT Orthopaedic Surgery; ATTEND Orthopaedic Surgery
PROC: 0SRD0J9 Replacement of Left Knee Joint with Synthetic Substitute, Cemented, Open Approach (ICD-10-PCS; principal; 2017-08-02 10:00)
DX: M17.12 Unilateral primary osteoarthritis, left knee (principal); K21.9 Gastro-esophageal reflux disease without esophagitis; E11.9 Type 2 diabetes mellitus without complications; M25.562 Pain in left knee; M54.12 Radiculopathy, cervical region; M43.10 Spondylolisthesis, site unspecified; M50.30 Other cervical disc degeneration, unspecified cervical region; M51.36 Other intervertebral disc degeneration, lumbar region; F32.9 Major depressive disorder, single episode, unspecified; Z79.84 Long term (current) use of oral hypoglycemic drugs
CPT/HCPCS: 01402; 36415; 80048; 81025; 82962; 85027; 88305; 88311; 94799; C9290; J0131; J0690; J1170; J1741; J1815; J2250; J2405; J2704; J3010; J3370; J3490; J7050; J7060

== ENCOUNTER 2017-10-20 06:17 | Day surgery (SDC) | payer BC, OTHER ==
[2017-10-15 12:16] LABS: APPEARANCE,URINE CLEAR; BILIRUBIN,URINE NEGATIVE (NEGATIVE); COLOR,URINE YELLOW; GLUCOSE, URINE NEGATIVE (NEGATIVE); KETONES,URINE NEGATIVE (NEGATIVE); LEUKOCYTE ESTERASE,URINE NEGATIVE (NEGATIVE); NITRITE,URINE NEGATIVE (NEGATIVE); PROTEIN,URINE NEGATIVE (NEGATIVE); URINE SPECIFIC GRAVITY 1.013; UROBILINOGEN,URINE NEGATIVE mg/dL (<2.0)
[2017-10-15 13:43] LABS: ABSOLUTE BASOPHILS # (AUTO) 0.1 10^3/uL (0.0-0.2); ABSOLUTE EOSINOPHILS # (AUTO) 0.2 10^3/uL (0.0-0.6); ABSOLUTE LYMPHOCYTES (AUTO) 2.9 10^3/uL (0.5-4.7); ABSOLUTE MONOCYTES (AUTO) 0.7 10^3/uL (0.1-1.4); BASOPHILS % (AUTO) 0.6 % (0-2); EOSINOPHILS % (AUTO) 1.9 % (0-6); HEMOGLOBIN 14.4 g/dL (12.0-15.5); LYMPHOCYTES % (AUTO) 29.7 % (13-45); MEAN CORPUSCULAR HGB CONC 34.4 g/dL (32.0-36.0); MEAN CORPUSCULAR VOLUME 84 fl (80-97); PLATELET COUNT 355 10^3/uL (150-450); RED BLOOD COUNT 4.98 10^6/uL (3.72-5.28); RED CELL DISTRIBUTION WIDTH 13.7 % (11.5-14.0); SEGMENTED NEUTROPHILS % (AUTO) 60.8 % (42-78); TOTAL CELLS COUNTED % (AUTO) 100 %; WHITE BLOOD COUNT 9.9 10^3/uL (4.0-10.5)
[2017-10-15 14:08] LABS: ANION GAP 17 (5-19); BLOOD UREA NITROGEN 8 mg/dL (7-20); CALCIUM 9.8 mg/dL (8.4-10.2); CARBON DIOXIDE 25 mmol/L (22-30); CHLORIDE 104 mmol/L (98-107); GLUCOSE 104 mg/dL (75-110); POTASSIUM 4.4 mmol/L (3.6-5.0); SODIUM 145.6 mmol/L (137-145)
--- NOTE | 2017-10-15 21:11 | EKG REPORT ---
SEVERITY:- NORMAL ECG - SINUS RHYTHM : Confirmed by: Adrián Wills 15-Oct-2017 21:11:14
[~2017-10-20 06:17] MED LIST changes: -BUPIVACAINE INJ/PF LIPOSOME/PF 266 MG/20 ML SDV IJ PRN; -BUPIVACAINE INJ/PF LIPOSOME/PF 266 MG/20 ML SDV ONE; -CEFAZOLIN INJ 1 GM VIAL IV PRN; +CEFAZOLIN SODIUM 2 GM in DEXTROSE 5%-WATER 100 ML IV PRN; -IBUPROFEN 800 MG/NS 250 ML IV PRN; -LANSOPRAZOLE 15 MG TAB.RAP.DR PO PRN; -OXYCODONE HCL SR 10 MG TABLET PO PRN; -THROMBIN (BOVINE) 5000 UNIT EPITAXIS KIT ONE; -THROMBIN (BOVINE) TOPICAL 20000 UNIT VIAL ONE; -VANCOMYCIN HCL 1,000 MG in DEXTROSE 5%-WATER 250 ML IV PRN
[2017-10-20] MEDS ORDERED: FENTANYL CITRATE INJ/PF 100 MCG/2 ML AMPUL ONE ×2 (08:08→08:48)
[2017-10-20] MEDS ORDERED: MIDAZOLAM 2 MG/2 ML INJ ONE (08:08)
[2017-10-20] MEDS ORDERED: PROPOFOL INJ 200 MG/20 ML VIAL IV ONE (08:09)
[2017-10-20] MEDS ORDERED: FENTANYL CITRATE INJ/PF 100 MCG/2 ML AMPUL IV PRN ×3 (08:20)
[2017-10-20] MEDS ORDERED: PROMETHAZINE HCL INJ 25 MG/1 ML VIAL IV PRN ×2 (08:20)
[2017-10-20] MEDS ORDERED: DIPHENHYDRAMINE HCL 50 MG/ML VIAL IV PRN (08:20)
[2017-10-20] MEDS ORDERED: MEPERIDINE HCL/PF INJ 25 MG/1 ML DISP.SYRIN IV PRN (08:20)
[2017-10-20] MEDS ORDERED: OXYCODONE-ACETAMINOPHEN 5-325 MG TABLET PO PRN ×2 (08:20)
--- NOTE | 2017-10-20 08:28 | Operative Report ---
Operative Report DATE OF SURGERY: 10/20/17 PREOPERATIVE DIAGNOSIS: Left knee arthrofibrosis OPERATION: Left knee closed manipulation ANESTHESIA: Moderate Sedation PROCEDURE: With the patient supine on a hospital gurney under sedation, the left knee injury motion is evaluated and noted to be 0-100. Photographs are taken of both of these positions. Subsequently the knee is manipulated with further flexion to approximately 130. Again photographic documentation is performed. Patient's return to the PACU in satisfactory condition.
[2017-10-20] MEDS ORDERED: OXYCODONE HCL IR 5 MG TABLET PO PRN (09:06)
[2017-10-20] MEDS ORDERED: ONDANSETRON 4 MG TAB.RAPDIS SL PRN (09:07)
[2017-10-20] MEDS ORDERED: IBUPROFEN 800 MG in NORMAL SALINE 250 ML IV ONE (09:30)
[2017-10-20 11:11] VITALS: BP 125/70
== END 2017-10-20 10:20 | disposition home or self-care (01) ==
LOC: OROUT 06:17
PROVIDERS: ATTEND Orthopaedic Surgery
DX: Z96.653 Presence of artificial knee joint, bilateral (principal); E11.9 Type 2 diabetes mellitus without complications; K21.9 Gastro-esophageal reflux disease without esophagitis; I10 Essential (primary) hypertension; Z88.5 Allergy status to narcotic agent; Z79.899 Other long term (current) drug therapy; Z79.84 Long term (current) use of oral hypoglycemic drugs; Z79.1 Long term (current) use of non-steroidal anti-inflammatories (NSAID); Z79.891 Long term (current) use of opiate analgesic; Z86.14 Personal history of Methicillin resistant Staphylococcus aureus infection
CPT/HCPCS: 93005; 36415; 82962; 85025; 81025; 80048; 81001; 83036; 93010; 27570; J2250; J0690; J3010; J7050; J2704; J1741; 1380

== ENCOUNTER → 2020-03-14 | Outpatient (CLI) | payer BC, OTHER ==
--- NOTE | 2020-03-14 13:14 | RADIOLOGY REPORT (SQ) ---
EXAM DESCRIPTION: CT SOFT TISSUE NECK WITH IMAGES COMPLETED DATE/TIME: 03/14/2020 12:50 pm REASON FOR STUDY: R22.1 LOCALIZED SWELLING, MASS AND LUMP, NECK R22.1 LOCALIZED SWELLING, MASS AND LUMP, NECK COMPARISON: None. TECHNIQUE: Post IV contrasted scanning from skull base through lung apices with review of bone, soft tissue and lung windows. Reconstructed coronal and sagittal MPR images reviewed. All images stored on PACS. All CT scanners at this facility use dose modulation, iterative reconstruction, and/or weight based d osing when appropriate to reduce radiation dose to as low as reasonably achievable (ALARA). [facility]: Dose Right [facility]: CareDose [facility]: Dose Right [facility]: Teradose 4D [facility]: XCast Labs CONTRAST TYPE AND DOSE: contrast/concentration: Isovue 350.00 mmol/ml; Total Contrast Delivered: 75. 0 ml; Total Saline Delivered: 53.0 ml RENAL FUNCTION: GFR > 60. RADIATION DOSE: . LIMITATIONS: None. FINDINGS: SKULL BASE: Intact. MAJOR SALIVARY GLANDS: No solid or cystic masses. No inflammatory changes. LYMPHADENOPATHY: No adenopathy. MUCOSAL MASSES OR ASYMMETRY: No mucosal masses or asymmetry. LARYNX/CORDS: No abnormal findings. VASCULAR STRUCTURES: Mild calcified plaque bilateral carotid bifurcations. Major vessels are patent. LUNG APICES: Clear. BONES: Intact. THYROID: Normal size. Subcentimeter cystic nodules. PARANASAL SINUSES: Clear. OTHER: No other significant finding. IMPRESSION: Small colloid cysts. Calcified arterial plaque. No acute findings. TECHNICAL DOCUMENTATION: JOB ID: [id number] Quality ID # [id number]: Final reports with documentation of one or more dose reduction techniques (e.g., Au tomated exposure control, adjustment of the mA and/or kV according to patient size, use of iterative reconstruction technique) 2010 [employer]- All Rights Reserved Reading location - IP/workstation name: [email or web address]
== END ==
LOC: RAD 12:27
PROVIDERS: ATTEND Surgery
DX: E04.1 Nontoxic single thyroid nodule (principal)
CPT/HCPCS: 70491; 82565